=== PATIENT | female | born 1935 | race Caucasian/White ===

== ENCOUNTER → 2022-06-07 | Day surgery (SDC) | payer OTHER ==
[~2022-06-07] VITALS: Ht 160 cm; Wt 79.4 kg
[~2022-06-07] MED LIST: ASPI1TAB20 PO; CIPROFLOXACIN 400MG/200ML 200 ML IV ONE; FUROSEMIDE 20 MG/2 ML VIAL IV ONE; HYDROmorphone HCL 2 MG/ML VL/or syr IV PRN; IOHEXOL 300 MG/ML 100ML BOTTLE IJ ONE; LEVO25TA6 PO; LIDOCAINE 2% (LOCAL ANESTH.) PF 5ml SDV ONE; MELO5CAP2 PO; METOCLOPRAMIDE HCL 5MG/ml INJ 2ml VIAL IV PRN; METOCLOPRAMIDE HCL 5MG/ml INJ 2ml VIAL ONE; MIDAZOLAM HCL 2MG/2ML 2ml VIAL (1mg/ml) ONE; MORPHINE SULFATE 4 MG/ML SYR/VIAL IV PRN; NIFE1TAB31 PO; ONDANSETRON HCL 4 MG/2 ML VIAL ONE; PROPOFOL 10 MG/ML 20 ML IV ONE; SERT25TA14 PO; SIMV10TA84 PO; SODIUM CHLORIDE LOCK 10 ML ONE; TOLT2CAP PO; fentaNYL CITRATE 100 MCG/2 ML VL ONE
[2022-06-07 15:50] VITALS: BP 140/52
== END | disposition home or self-care (01) ==
LOC: SUR 09:10
PROVIDERS: ATTEND Urology
DX: N20.0 Calculus of kidney (principal); Z20.822 Contact with and (suspected) exposure to COVID-19; I10 Essential (primary) hypertension; E78.5 Hyperlipidemia, unspecified; Z86.73 Personal history of transient ischemic attack (TIA), and cerebral infarction without residual deficits; J45.909 Unspecified asthma, uncomplicated; Z98.890 Other specified postprocedural states; Z79.899 Other long term (current) drug therapy
CPT/HCPCS: 52353; J0744; J1940; J2001; J2250; J2405; J2704; J2765; J3010; Q9967; U0003